=== PATIENT | male | born 1990 ===

== ENCOUNTER 2018-02-28 08:00 | Emergency (ER) | payer OTHER ==
[2018-02-28 08:06] VITALS: RESP 16
[2018-02-28] MEDS ORDERED: Sodium Chloride 0.9% 1,000 ML ONE (08:36)
[2018-02-28] MEDS ORDERED: Dexamethasone 4 mg/1 ml ONE (08:36)
--- NOTE | 2018-02-28 08:36 | C.PDOC ---
History Of Present Illness 27 y/o male presents to ED with c/o sore throat, body aches, cough and congestion since yesterday. Patient denies fever, chills, chest pain, sob, nausea, vomiting or any other complaints at this time. Time Seen by Provider: 02/28/18 08:08 Chief Complaint (Nursing): ENT Problem History Per: Patient History/Exam Limitations: no limitations Onset/Duration Of Symptoms: Days Current Symptoms Are (Timing): Still Present Associated Symptoms: Sore Throat, Cough, Nasal Congestion Past Medical History Reviewed: Historical Data, Nursing Documentation, Vital Signs Vital Signs: Last Vital Signs Temp 98.5 F 02/28/18 12:05 Pulse 90 02/28/18 12:05 Resp 16 02/28/18 12:05 BP 101/61 02/28/18 12:05 Pulse Ox 96 02/28/18 12:14 - Medical History PMH: No Chronic Diseases Surgical History: No Surg Hx Family History: States: No Known Family Hx - Social History Hx Alcohol Use: Yes Hx Substance Use: No - Immunization History Hx Tetanus Toxoid Vaccination: No Hx Influenza Vaccination: No Hx Pneumococcal Vaccination: No Review Of Systems Constitutional: Negative for: Fever, Chills ENT: Positive for: Nose Congestion, Throat Pain Cardiovascular: Negative for: Chest Pain Respiratory: Positive for: Cough. Negative for: Shortness of Breath Gastrointestinal: Negative for: Nausea, Vomiting Skin: Negative for: Rash Physical Exam - Physical Exam Appears: Non-toxic, No Acute Distress Skin: Warm, Dry, No Rash Head: Atraumatic, Normacephalic Eye(s): bilateral: Normal Inspection Ear(s): Bilateral: Normal Oral Mucosa: Moist Throat: Exudate, No Drooling, No Mass, Other (enlarged tonsils) Neck: Supple Lymphatic: Other (tender enlarged lymph nodes on neck) Cardiovascular: Rhythm Regular Respiratory: Normal Breath Sounds, No Rales, No Rhonchi, No Wheezing Gastrointestinal/Abdominal: Soft, No Tenderness, No Guarding, No Rebound Neurological/Psych: Oriented x3, Normal Speech, Normal Cognition ED Course And Treatment O2 Sat by Pulse Oximetry: 96 (RA) Progress Note: Decadron IV, Toradol and IV fluids. Carlton spot and Rapid strep ordered. On re-evaluation lungs clear, tolerating PO. Treated with pen VK Reassessment Condition: Improved Disposition Counseled Patient/Family Regarding: Studies Performed, Diagnosis, Need For Followup, Rx Given - Disposition Referrals: Rylan Mitchell [facility] [Outside] [facility] [Outside] Disposition: HOME/ ROUTINE Disposition Time: 12:00 Condition: STABLE Additional Instructions: Return to ED if any increase symptoms Prescriptions: Penicillin VK [Penicillin VK Tab] 2 tab PO BID #28 tab Instructions: Sore Throat, Adult (DC) Forms: [employer] (I[place]ic), Work Excuse Print Language: ENGLISH - POA Present On Arrival: None - Clinical Impression Clinical Impression: Pharyngitis - PA / [employer] / Resident Statement MD/DO has reviewed & agrees with the documentation as recorded. - Scribe Statement The provider has reviewed the documentation as recorded by the Rajinder Mccarthy All medical record entries made by the Rajinder were at my direction and personally dictated by me. I have reviewed the chart and agree that the record accurately reflects my personal performance of the history, physical exam, medical decision making, and the department course for this patient. I have also personally directed, reviewed, and agree with the discharge instructions and disposition.
[2018-02-28] MEDS: Sodium Chloride 0.9% 1,000 ML IV ONE (08:50)
[2018-02-28] MEDS: Dexamethasone 10 MG in Sodium Chloride 0.9% 50 ML IV ONE (08:55)
[2018-02-28] MEDS: Penicillin VK 250 mg/5 mL Oral(100mL) PO STA (12:03)
[2018-02-28 12:06] VITALS: BP 101/61; PULSE 90; TEMP 98.5
[2018-02-28 12:14] VITALS: O2SAT 96
== END 2018-02-28 12:24 | disposition home or self-care (01) ==
LOC: C.ER 08:00
DX: J02.9 Acute pharyngitis, unspecified (principal); F17.290 Nicotine dependence, other tobacco product, uncomplicated
CPT/HCPCS: 86308; 87070; 87430; 96365; 96375; 99284; J1100; J1885; J7030